=== PATIENT | male | born 1990 | race African-American/Black ===

== ENCOUNTER 2016-07-26 18:55 | Emergency (ER) | payer SELFPAY ==
[~2016-07-26] VITALS: Ht 188 cm; Wt 81.6 kg
[2016-07-26] MEDS ORDERED: HYDROcodone/APAP 5/325MG 1 TAB TABLET PO ONE (20:00)
[2016-07-26] MEDS ORDERED: IV NORMAL SALINE 1000ML BAG 1,000 ML IV ONE (20:00)
[2016-07-26] MEDS ORDERED: KETOROLAC TROMETHAMINE 30 MG/ML INJ. IV ONE (20:00)
[2016-07-26] MEDS ORDERED: ONDANSETRON PF 4 MG/2 ML VIAL. IV ONE (20:00)
[2016-07-26 20:32] LABS: BASO % 0 % (0-3); EOS % 0 % (0-3); HEMATOCRIT 47.7 % (39.0-53.0); HEMOGLOBIN 15.4 g/dL (13.0-17.5); LYMPH # 1.1 x10^3/uL (1.0-4.8); LYMPH % 20 % (24-48); MEAN CORPUSCULAR HEMOGLOBIN 25 pg (25-35); MEAN CORPUSCULAR HGB CONC 32 g/dL (31-37); MEAN CORPUSCULAR VOLUME 78 fL (79-100); MONO % 13 % (0-9); NEUT % 67 % (31-73); PLATELET COUNT 125 x10^3/uL (140-400); RED BLOOD COUNT 6.15 x10^6/uL (4.30-5.70); RED CELL DISTRIBUTION WIDTH 15.5 % (11.5-14.5); WHITE BLOOD COUNT 5.5 x10^3/uL (4.0-11.0)
[2016-07-26 20:50] LABS: CALCIUM 9.7 mg/dL (8.5-10.1); CREATININE 1.5 mg/dL (0.7-1.3); GFR 67.4; POTASSIUM 3.8 mmol/L (3.5-5.1)
[2016-07-26 20:56] LABS: ETHANOL < 10 mg/dL (0-10)
[2016-07-26 21:01] LABS: ALBUMIN 3.6 g/dL (3.4-5.0); ALBUMIN/GLOBULIN RATIO 0.8 (1.0-1.7); TOTAL BILIRUBIN 0.4 mg/dL (0.2-1.0); TOTAL PROTEIN 7.9 g/dL (6.4-8.2)
[2016-07-26 21:11] LABS: NEGATIVE OBC MONO NEG; POSITIVE OBC MONO POS
[2016-07-26 21:15] LABS: PLT ESTIMATE DECREASED (ADEQUATE)
[2016-07-26 21:16] LABS: ANISOCYTOSIS SLIGHT; OVALOCYTES FEW; POIKILOCYTOSIS SLIGHT; POLYCHROMASIA SLIGHT
[2016-07-26 21:17] LABS: TOXIC VACUOLATION PRESENT
[2016-07-26 21:30] VITALS: BP 139/73
--- NOTE | 2016-07-26 21:57 | PHYS DOC ---
Past Medical History Past Medical History: No Pertinent History Past Surgical History: No Surgical History Additional Information: BLACK & MILDS 2/DAY Alcohol Use: None Drug Use: Marijuana Adult General Chief Complaint Chief Complaint: NAUSEA/VOMITING/DIARRHA HPI HPI Patient is a 26 year old male presenting to the emergency department for evaluation of generalized malaise fatigue nausea diffuse arthralgias and myalgias that have been going on for 2 weeks but worse over the past 3 days. Patient denies any recent foreign travel tick bite exposure or anything he can think of that he says he has no appetite and does not feel well. He says he has some sore throat but is not eating or drinking much due to the symptoms he is having. He has some cough but no dysuria rash diarrhea or vomiting. Review of Systems Review of Systems Constitutional: Denies fever or chills [] Eyes: Denies change in visual acuity, redness, or eye pain [] HENT: Denies nasal congestion. + sore throat [] Respiratory: Denies cough or shortness of breath [] Cardiovascular: No additional information not addressed in HPI [] GI: Denies abdominal pain. + nausea. No vomiting, bloody stools or diarrhea [] : Denies dysuria or hematuria [] Musculoskeletal: Denies back pain or joint pain [] Integument: Denies rash or skin lesions [] Neurologic: Denies headache, focal weakness or sensory changes [] Current Medications Current Medications Current Medications Medications (Trade) Dose Ordered Sig/Tracy Start Time Stop Time Status Last Admin Dose Admin Acetaminophen/ Hydrocodone Bitart (Lortab 5/325) 2 tab 1X ONCE 07/26/16 20:00 07/26/16 20:01 DC 07/26/16 20:37 2 TAB Ketorolac Tromethamine (Toradol) 30 mg 1X ONCE 07/26/16 20:00 07/26/16 20:01 DC 07/26/16 20:37 30 MG Ondansetron HCl (Zofran) 8 mg 1X ONCE 07/26/16 20:00 07/26/16 20:01 DC 07/26/16 20:34 8 MG Sodium Chloride 1,000 ml @ 1,000 mls/hr 1X ONCE 07/26/16 20:00 07/26/16 20:59 DC 07/26/16 20:38 1,000 MLS/HR Allergies Allergies Allergies Coded Allergies Type Severity Reaction Last Updated Verified No Known Drug Allergies 12/09/14 No Physical Exam Physical Exam Constitutional: Well developed, well nourished, no acute distress, non-toxic appearance. [] HENT: Normocephalic, atraumatic, bilateral external ears normal, oropharynx moist, no oral exudates, nose normal. [] Eyes: PERRLA, EOMI, conjunctiva normal, no discharge. [] Neck: Normal range of motion, no tenderness, supple, no stridor. [] Cardiovascular:Heart rate regular rhythm, no murmur [] Lungs & Thorax: Bilateral breath sounds clear to auscultation [] Abdomen: Bowel sounds normal, soft, no tenderness, no masses, no pulsatile masses. [] Skin: Warm, dry, no erythema, no rash. [] Back: No tenderness, no CVA tenderness. [] Extremities: No tenderness, no cyanosis, no clubbing, ROM intact, no edema. [] Neurologic: Alert and oriented X 3, normal motor function, normal sensory function, no focal deficits noted. [] Current Patient Data Vital Signs Vital Signs Date Time Temp Pulse Resp B/P (MAP) Pulse Ox O2 Delivery O2 Flow Rate FiO2 07/26/16 21:30 55 18 139/73 (95) 97 Room Air 07/26/16 19:37 98.8 98.8 Lab Values Laboratory Tests Test 07/26/16 20:10 07/26/16 22:07 White Blood Count 5.5 x10^3/uL (4.0-11.0) Red Blood Count 6.15 x10^6/uL (4.30-5.70) H Hemoglobin 15.4 g/dL (13.0-17.5) Hematocrit 47.7 % (39.0-53.0) Mean Corpuscular Volume 78 fL (79-100) L Mean Corpuscular Hemoglobin 25 pg (25-35) Mean Corpuscular Hemoglobin Concent 32 g/dL (31-37) Red Cell Distribution Width 15.5 % (11.5-14.5) H Platelet Count 125 x10^3/uL (140-400) L Neutrophils (%) (Auto) 67 % (31-73) Lymphocytes (%) (Auto) 20 % (24-48) L Monocytes (%) (Auto) 13 % (0-9) H Eosinophils (%) (Auto) 0 % (0-3) Basophils (%) (Auto) 0 % (0-3) Neutrophils # (Auto) 3.7 x10^3uL (1.8-7.7) Lymphocytes # (Auto) 1.1 x10^3/uL (1.0-4.8) Monocytes # (Auto) 0.7 x10^3/uL (0.0-1.1) Eosinophils # (Auto) 0.0 x10^3/uL (0.0-0.7) Basophils # (Auto) 0.0 x10^3/uL (0.0-0.2) Segmented Neutrophils % 58 % (35-66) Band Neutrophils % 3 % (0-9) Lymphocytes % 26 % (24-48) Atypical Lymphocytes % (Manual) 8 % (0-0) H Monocytes % 5 % (0-10) Toxic Vacuolation Present Platelet Estimate Decreased (ADEQUATE) Polychromasia Slight Poikilocytosis Slight Anisocytosis Slight Ovalocytes Few Sodium Level 140 mmol/L (136-145) Potassium Level 3.8 mmol/L (3.5-5.1) Chloride Level 104 mmol/L (98-107) Carbon Dioxide Level 29 mmol/L (21-32) Anion Gap 7 (6-14) Blood Urea Nitrogen 11 mg/dL (8-26) Creatinine 1.5 mg/dL (0.7-1.3) H Estimated GFR (Cockcroft-Gault) 67.4 BUN/Creatinine Ratio 7 (6-20) Glucose Level 105 mg/dL (70-99) H Lactic Acid Level 1.0 mmol/L (0.4-2.0) Calcium Level 9.7 mg/dL (8.5-10.1) Magnesium Level 2.0 mg/dL (1.8-2.4) Total Bilirubin 0.4 mg/dL (0.2-1.0) Aspartate Amino Transferase (AST) 33 U/L (15-37) Alanine Aminotransferase (ALT) 27 U/L (16-63) Alkaline Phosphatase 76 U/L (46-116) Creatine Kinase 57 U/L (39-308) Total Protein 7.9 g/dL (6.4-8.2) Albumin 3.6 g/dL (3.4-5.0) Albumin/Globulin Ratio 0.8 (1.0-1.7) L Lipase 112 U/L (73-393) Salicylates Level 3.4 mg/dL (2.8-20.0) Salicylate Last Dose Date Unk Salicylate Last Dose Time Unk Acetaminophen Level < 10 mcg/ml (10-30) L Acetaminophen Last Dose Date Unk Acetaminophen Last Dose Time Unk Ethyl Alcohol Level < 10 mg/dL (0-10) Heterophil Agglutinins Negative (NEGATIVE) Urine Collection Type Unknown Urine Color Erma Urine Clarity Cloudy Urine pH 6.0 Urine Specific Charlotte >=1.030 Urine Protein 100 mg/dL (NEG-TRACE) Urine Glucose (UA) Negative mg/dL (NEG) Urine Ketones (Stick) Trace mg/dL (NEG) Urine Blood Negative (NEG) Urine Nitrite Negative (NEG) Urine Bilirubin Small (NEG) Urine Urobilinogen Dipstick 1.0 mg/dL (0.2 mg/dL) Urine Leukocyte Esterase Negative (NEG) Urine RBC 0 /HPF (0-2) Urine WBC >40 /HPF (0-4) Urine Squamous Epithelial Cells Mod /LPF Urine Bacteria Few /HPF (0-FEW) Urine Hyaline Casts Moderate /HPF Urine Mucus Mod /LPF Urine Opiates Screen Pos (NEG) Urine Methadone Screen Neg (NEG) Urine Barbiturates Neg (NEG) Urine Phencyclidine Screen Neg (NEG) Urine Amphetamine/Methamphetamine Neg (NEG) Urine Benzodiazepines Screen Pos (NEG) Urine Cocaine Screen Pos (NEG) Urine Cannabinoids Screen Pos (NEG) Urine Ethyl Alcohol Neg (NEG) Laboratory Tests 07/26/16 20:10 Laboratory Tests 07/26/16 20:10 EKG EKG [] Radiology/Procedures Radiology/Procedures Normal heart size normal mediastinum and no obvious free air pneumothorax or opacity. Course & Med Decision Making Course & Med Decision Making Labs reviewed and it appears that he has some sort of viral infection as he has increased lymphocytes particularly atypical lymphocytes. Patient given fluids Toradol and Zofran here. Patient says that all of his symptoms are resolved and he is feeling better and asking to go home. Given patient appears well with normal VS benign PE and workup will DC with supportive treatment and PCP f/u later this week. Dragon Disclaimer Dragon Disclaimer This electronic medical record was generated, in whole or in part, using a voice recognition dictation system. Departure Departure Impression: Primary Impression: Viral syndrome Disposition: 01 HOME, SELF-CARE Condition: GOOD Referrals: NO PCP (PCP) Patient Instructions: Viral Infections Additional Instructions: TAKE 400MG OF IBUPROFEN EVERY 6 HOURS AND THE NORCO FOR BREAKTHROUGH PAIN. FOLLOW WITH A PCP LATER THIS WEEK AND COME BACK TO THE ED SOONER WITH ANY NEW OR WORSENING SYMPTOMS. THANK YOU! Scripts Ondansetron (ZOFRAN ODT) 4 Mg Tab.rapdis 4 MG PO BID Y for NAUSEA/VOMITING, #10 TAB Prov: JALEN CONNOR DO 07/26/16 Hydrocodone/Apap 5-325 (NORCO 5-325 TABLET) 1 Each Tablet 1 TAB PO PRN Q6HRS Y for PAIN, #14 TAB 0 Refills Prov: JALEN CONNOR DO 07/26/16 JALEN CONNOR DO Jul 26, 2016 21:57
[2016-07-26 22:16] LABS: BILIRUBIN,URINE SMALL (NEG); GLUCOSE,URINE NEGATIVE (NEG); NITRITE,URINE NEGATIVE (NEG); PROTEIN,URINE 100 mg/dL (NEG-TRACE)
[2016-07-26 22:22] LABS: BARBITURATES NEG (NEG); BENZODIAZEPINES POS (NEG); CANNABINOIDS POS (NEG); COCAINE POS (NEG); METHADONE NEG (NEG); OPIATES POS (NEG); PHENCYCLIDINE NEG (NEG)
[2016-07-26 22:47] LABS: RBC,URINE 0 /HPF (0-2)
[2016-07-26 22:48] LABS: BACTERIA,URINE FEW /HPF (0-FEW); SQUAMOUS EPITHELIAL CELL,UR MOD /LPF; WBC,URINE >40 /HPF (0-4)
[2016-07-26] MEDS ORDERED: HYDR-971 PO (23:03)
[2016-07-26] MEDS ORDERED: ONDA4TAB10 PO (23:03)
--- NOTE | 2016-07-27 08:23 | RAD ---
Indication cough. A single view of the chest was obtained and is compared to an examination 11/09/2008. The heart and pulmonary vessels appear normal. The lungs are clear. There has not been a significant change when compared to the previous exam. IMPRESSION: Normal single view of the chest
== END 2016-07-26 23:15 | disposition home or self-care (01) ==
LOC: ER 18:55
DX: B34.9 Viral infection, unspecified (principal); J02.9 Acute pharyngitis, unspecified; F12.10 Cannabis abuse, uncomplicated
CPT/HCPCS: 36415; 71010; 80053; 81001; 82550; 83605; 83690; 83735; 85007; 85027; 86308; 86644; 86645; 86663; 86664; 87086; 96361; 96374; 96375; 99285; G0480; J1885; J2405; J7030; 80320; 80329; G0481

== ENCOUNTER 2020-11-30 21:07 | Emergency (ER) | payer MEDICAID ==
[~2020-11-30] VITALS: Ht 188 cm; Wt 86.0 kg
[~2020-11-30 21:07] MED LIST: HYDR-3164 PO; METH4TAB2 PO; ONDA4TAB10 PO
[2020-11-30 22:25] VITALS: BP 145/75
[2020-11-30] MEDS ORDERED: CEPH500T PO (22:36)
--- NOTE | 2020-11-30 22:37 | PHYS DOC ---
Past Medical History Past Medical History: No Pertinent History Past Surgical History: No Surgical History Smoking Status: Former Smoker Alcohol Use: None Drug Use: None General Adult EDM: Chief Complaint: ABSCESS HPI: HPI: Patient is a 30 year old male who presents complaining of an insect bite behind the left ear. Patient states he noted it 4 days ago and has attempted to drain it several times and nothing has come out of it. Denies any fever. Denies any hearing loss. Review of Systems: Review of Systems: Constitutional: Denies fever or chills. [] HENT: Denies nasal congestion or sore throat. [] Musculoskeletal: Denies back pain or joint pain. [] Integument: Reports an insect bite behind the left ear Neurologic: Denies headache, focal weakness or sensory changes. [] ] Psychiatric: Denies depression or anxiety. [] Heart Score: C/O Chest Pain: N/A Risk Factors: Risk Factors: DM, Current or recent (<one month) smoker, HTN, HLP, family history of CAD, obesity. Risk Scores: Score 0 - 3: 2.5% MACE over next 6 weeks - Discharge Home Score 4 - 6: 20.3% MACE over next 6 weeks - Admit for Clinical Observation Score 7 - 10: 72.7% MACE over next 6 weeks - Early Invasive Strategies Current Medications: Current Medications Medications (Trade) Dose Ordered Sig/Tracy Start Time Stop Time Status Last Admin Dose Admin Diphtheria/ Tetanus/Acell Pertussis (ADACEL TDap SYRINGE) 0.5 ml ONCE ONCE 11/30/20 22:30 11/30/20 22:31 UNV Mupirocin (Bactroban) 1 monty 1X STAT 11/30/20 22:26 11/30/20 22:27 UNV Allergies: Allergies: Allergies Coded Allergies Type Severity Reaction Last Updated Verified No Known Drug Allergies 12/09/14 No Physical Exam: PE: Constitutional: Well developed, well nourished, no acute distress, non-toxic appearance. [] HENT: Normocephalic, atraumatic, bilateral external ears normal, oropharynx moist, no oral exudates, nose normal. [] Skin: The area behind the left upper helix and behind the helix with an indurated area approximately 1 x 0.5 cm. The area is firm, tender to touch, warm and erythematous. There is bruising over the area from attempted drainage by patient. Back: No tenderness, no CVA tenderness. [] Extremities: No tenderness, no cyanosis, no clubbing, ROM intact, no edema. [] Neurologic: Alert and oriented X 3, normal motor function, normal sensory function, no focal deficits noted. [] Psychologic: Affect normal, judgement normal, mood normal. [] Current Patient Data: Vital Signs: Vital Signs Date Time Temp Pulse Resp B/P (MAP) Pulse Ox O2 Delivery O2 Flow Rate FiO2 11/30/20 22:10 98.3 57 16 145/86 (105) 100 Room Air 98.3 EKG: EKG: [] Radiology/Procedures: Radiology/Procedures: [] Course & Med Decision Making: Course & Med Decision Making Pertinent Labs and Imaging studies reviewed. (See chart for details) This is a 30-year-old male patient presenting to the ED today with an abscess above and behind the helix of the left ear. Symptoms for 4 days, unfortunately patient has attempted multiple I&D's on the area with no success. The area is not fluctuant. There is nothing to drain today. Tetanus is up-to-date. Given mupirocin in the ED and discharged with cephalexin. Provided instructions to apply warm compresses to the area twice a day. Instructed to return to the ED at any point to the area is ready to drain or symptoms worsen. Dragon Disclaimer: Cruz Disclaimer: This electronic medical record was generated, in whole or in part, using a voice recognition dictation system. Departure Departure Impression: Primary Impression: Abscess of left external ear Disposition: HOME / SELF CARE / HOMELESS Condition: STABLE Referrals: NO PCP (PCP) follow up with your doctor in 2 weeks Patient Instructions: Abscess Additional Instructions: You were seen for an abscess around your ear. Use the prescribed mupirocin cream on the area twice a day for 10 days. Take the prescribed antibiotics until completed. Please apply warm compresses to the area twice a day for 10 days. Come back to the ED at any point symptoms worsen. Scripts Cephalexin (CEPHALEXIN) 500 Mg Tablet 1 TAB PO TID, #30 TAB Prov: MEGHANATOBIASJULIA APRN 11/30/20 JULIA DELAROSA APRN Nov 30, 2020 22:37
[2020-11-30] MEDS: MUPIROCIN 2 % OINTMENT 22GM TUBE. TP ONE (22:39)
[2020-11-30] MEDS ORDERED: DIPH,PERTUSS(ACELL),TET VAC/PF 0.5 ML SYRINGE. VAX IM ONE (23:00)
== END 2020-11-30 22:42 | disposition home or self-care (01) ==
LOC: ER 21:07
DX: H60.02 Abscess of left external ear (principal)
CPT/HCPCS: 99283